=== PATIENT | male | born 1955 | race Caucasian/White ===

== ENCOUNTER → 2019-05-25 | Outpatient (REF) | payer BC ==
[2019-05-26 14:20] LABS: ANTINUCLEAR ANTIBODIES DIRECT Negative (Negative); Lyme Disease IgG/IgM Antibodie <0.91 ISR (0.00-0.90); Lyme Disease IgM Ab Quantitati <0.80 index (0.00-0.79)
== END ==
LOC: M LAB REF 12:24
PROVIDERS: ATTEND Internal Medicine
DX: G51.0 Bell's palsy (principal)

== ENCOUNTER → 2022-10-26 | Day surgery (SDC) | payer MEDICARE ==
[~2022-10-26] VITALS: Ht 167.6 cm; Wt 70.5 kg
[~2022-10-26] MED LIST: INSU100I48 SC; LEVO112T2 PO; LIDOCAINE 2% 100MG/5ML SDV (FOR ANES.) As Ordered ONE; LISI10TA22 PO; LOVA40TA PO; METF10004 PO; NS 1,000 ML IV ONE; TRUL0.5I; propofoL 200 MG/20 ML VIAL As Ordered ONE
[2022-10-26 08:36] VITALS: TEMP 98
[2022-10-26 08:48] VITALS: BP 119/57; O2SAT 99
== END | disposition home or self-care (01) ==
LOC: M OPP 06:52
PROVIDERS: ATTEND Internal Medicine Gastroenterology
DX: Z80.0 Family history of malignant neoplasm of digestive organs (principal); D12.5 Benign neoplasm of sigmoid colon; K57.30 Diverticulosis of large intestine without perforation or abscess without bleeding; K64.8 Other hemorrhoids; Z79.02 Long term (current) use of antithrombotics/antiplatelets; Z79.4 Long term (current) use of insulin; Z79.82 Long term (current) use of aspirin; Z79.890 Hormone replacement therapy; Z79.899 Other long term (current) drug therapy; Z88.0 Allergy status to penicillin

== ENCOUNTER → 2024-06-05 | Outpatient (REF) | payer MEDICARE ==
[~2024-06-05] MED LIST changes: -LIDOCAINE 2% 100MG/5ML SDV (FOR ANES.) As Ordered ONE; -NS 1,000 ML IV ONE; -propofoL 200 MG/20 ML VIAL As Ordered ONE
[2024-06-05 14:02] LABS: PERCENT SATURATION 25.5 % (19.7-50.0)
[2024-06-05 14:05] LABS: FERRITIN 14.8 NG/ML (10.5-307.3)
== END ==
LOC: M LAB REF 13:13
PROVIDERS: ATTEND Internal Medicine
DX: D64.9 Anemia, unspecified (principal)

== ENCOUNTER → 2024-06-12 | Outpatient (REF) | payer MEDICARE ==
[2024-06-12 15:49] LABS: FOLATE 16.4 NG/ML (>5.4)
== END ==
LOC: M LAB REF 12:33
PROVIDERS: ATTEND Internal Medicine
DX: D64.9 Anemia, unspecified (principal)

== ENCOUNTER → 2025-01-02 | Outpatient (REF) | payer MEDICARE | LOC: M LAB REF 14:07 | PROVIDERS: ATTEND Internal Medicine | DX: D64.9 Anemia, unspecified (principal); N18.30 Chronic kidney disease, stage 3 unspecified ==